=== PATIENT | female | born 1935 | race Caucasian/White ===

== ENCOUNTER 2016-12-06 19:47 | Inpatient (IN) ==
[2016-12-06] MEDS: HYDROmorphone 2 MG/ML SYRINGE IV PRN ×2 (20:25→21:16)
--- NOTE | 2016-12-06 20:35 | Emergency Department Note ---
Lower Extremity Injury HPI - General Chief Complaint: Extremity Injury, Lower Stated Complaint: Left Distal Femur Fracture Time Seen by Provider: 12/06/16 20:15 Source: patient Mode of arrival: ambulatory Limitations: other (gross hearing loss) - History of Present Illness HPI Narrative: 81-year-old female comes in from [place] with a left femur fracture. She was seen several weeks ago for bradycardia was found to have been taking her metoprolol inappropriately- she is at [facility] for that and then was placed in long-term facility in [place], scheduled to go home later this week. However at the nursing facility this morning she was backing up to go to the toilet and her knee buckled causing her to fall. She was taken to [facility] where she was diagnosed with a left femur fracture. Poppy Keyes nurse practitioner on duty there called Dr. Morales who agreed to consult on the patient for surgery tomorrow if hospitalist would admit. So she is brought into the ER for further workup prior to further hospital care and fracture repair - Related Data Home Medications Medication Instructions Recorded Confirmed Bisacodyl [Laxative] 5 mg PO DAILY PRN 12/06/16 12/06/16 Cetirizine [ZyrTEC] 10 mg PO DAILY 12/06/16 12/06/16 Magnesium Hydroxide [Milk of 30 ml PO DAILY PRN 12/06/16 12/06/16 Magnesia] Metoprolol Tartrate [Lopressor] 25 mg PO BID 12/06/16 12/06/16 Omeprazole 20 mg PO DAILY 12/06/16 12/06/16 Oxybutynin Chloride [Ditropan Xl] 5 mg PO DAILY 12/06/16 12/06/16 PARoxetine [Paxil] 20 mg PO DAILY 12/06/16 12/06/16 Phenyleph/Mineral Oil/Petrolat 28 gm RC HS PRN 12/06/16 12/06/16 [Preparation H Ointment] Potassium Chloride [Kdur] 10 meq PO DAILY 12/06/16 12/06/16 Theophylline Anhydrous [Farhat-24] 200 mg PO BID 12/06/16 12/06/16 busPIRone [Buspar] 5 mg PO BID 12/06/16 12/06/16 clonazePAM [Clonazepam] 0.25 mg SL BID 12/06/16 12/06/16 traMADol [Ultram] 50 mg PO TID PRN 12/06/16 12/06/16 Allergies Allergy/AdvReac Type Severity Reaction Status Date / Time Penicillins Allergy Mild ITCHING Verified 12/06/16 19:53 Review of Systems All systems ED: reviewed and negative except as stated. Past Medical History - Past Medical History Attestation: Yes: The following information was validated with the patient. Medical history: Reports: COPD, dementia, hypertension, osteoporosis, other ( nocturnal hypoxia) - Social History smoking status: Never smoker Physical Exam Overweight female in some acute distress secondary to pain. Normocephalic atraumatic. Conjunctiva clear sclerae white and anicteric. No nasal discharge or congestion. Oropharynx is pink and moist. Neck supple without lymphadenopathy or thyromegaly. Heart is regular rate and rhythm no murmurs appreciated. Lungs are clear to auscultation bilaterally without wheezes rales rhonchi or respiratory distress. Abdomen soft nontender nondistended. Left leg is in a brace secondary to fracture- this is very tender. Good pulses at feet posterior tibialis. Trace edema bilaterally. Alert but hearing loss limits interactions. - General Limitations: no limitations Course Vital Signs Temperature 98.6 F 12/06/16 19:47 Pulse Rate 119 H 12/06/16 19:47 Respiratory Rate 20 12/06/16 19:47 Blood Pressure 189/91 12/06/16 19:47 Pulse Oximetry (%) 95 12/06/16 19:47 Temperature 98.6 F 12/06/16 19:47 Pulse Rate 62 12/06/16 21:00 Respiratory Rate 20 12/06/16 21:00 Blood Pressure 183/102 12/06/16 21:00 Pulse Oximetry (%) 95 12/06/16 21:00 Extremity Injury, Lower - Medical Records Medical records reviewed: Yes I reviewed the patient's medical records. From [place] - Lab Data Lab results reviewed: Yes I reviewed the patient's lab results. Result diagrams: 12/06/16 20:05 12/06/16 20:05 Lab Results 12/06/16 12/06/16 12/06/16 Range/Units 20:05 20:05 20:05 WBC 9.2 (4.5-11.0) K/mcL RBC 4.74 (4.00-5.20) M/mcL Hgb 14.4 (12.0-15.0) g/dL Hct 45.9 (36.0-48.0) % MCV 96.9 (80.0-100.0) fL MCH 30.4 (26.0-34.0) pg MCHC 31.4 (31.0-36.0) g/dL RDW 13.3 (11.5-14.5) % Plt Count 288 (140-440) K/mcL MPV 7.9 (7.4-10.4) fL Gran % 83.9 H (38.0-78.0) % Lymph % (Auto) 7.4 L (15.5-49.0) % [place] % (Auto) 7.5 (1.0-9.0) % Eos % (Auto) 1.0 (0.0-7.0) % Baso % (Auto) 0.2 (0.0-2.0) % Gran # 7.7 (1.8-8.0) K/mcL Lymph # 0.7 L (1.5-4.8) K/mcL [place] # 0.7 (0.1-0.9) K/mcL Eos # 0.1 (0.0-0.7) K/mcL Baso # 0 (0.0-0.3) K/mcL PT 12.1 (11.9-14.5) sec INR 0.9 (0.9-1.1) Sodium 138 (133-145) mmol/L Potassium 4.6 (3.3-5.1) mmol/L Chloride 100 (96-108) mmol/L Carbon Dioxide 24 (22-30) mmol/L Anion Gap 14.0 (8-16) BUN 18 (8-23) mg/dl Creatinine 1.0 (0.6-1.1) mg/dl GFR Calculation 52 Glucose 130 H (70-105) mg/dL Calcium 9.4 (8.6-10.4) mg/dl Total Bilirubin 0.3 (0.0-1.0) mg/dL AST 14 (0-37) U/l ALT 8 (0-40) U/l Alkaline Phosphatase 91 (39-117) U/L Total Protein 7.0 (5.9-8.4) gm/dL Albumin 3.9 (3.2-5.2) gm/dL Globulin 3.1 (2.2-3.7) gm/dL Albumin/Globulin Ratio 1.3 (1.0-2.3) Urine Color Urine Appearance Urine pH (5.0-9.0) Ur Specific [place] (1.000-1.035) Urine Protein (NEG) mg/dL Urine Glucose (UA) (NEG) mg/dL Urine Ketones (NEG) mg/dL Urine Occult Blood (<0.03) mg/dL Urine Nitrate (NEG) Urine Bilirubin (NEG) mg/dL Urine Urobilinogen (NEG) mg/dL Ur Leukocyte Esterase (NEG) /uL Urine RBC (0-1) /hpf Urine WBC (0-4) /hpf Ur Squamous Epith Cells (0-4) /hpf Urine Bacteria (0) /hpf Ur Culture Indicated? 12/06/16 Range/Units 20:36 WBC (4.5-11.0) K/mcL RBC (4.00-5.20) M/mcL Hgb (12.0-15.0) g/dL Hct (36.0-48.0) % MCV (80.0-100.0) fL MCH (26.0-34.0) pg MCHC (31.0-36.0) g/dL RDW (11.5-14.5) % Plt Count (140-440) K/mcL MPV (7.4-10.4) fL Gran % (38.0-78.0) % Lymph % (Auto) (15.5-49.0) % [place] % (Auto) (1.0-9.0) % Eos % (Auto) (0.0-7.0) % Baso % (Auto) (0.0-2.0) % Gran # (1.8-8.0) K/mcL Lymph # (1.5-4.8) K/mcL [place] # (0.1-0.9) K/mcL Eos # (0.0-0.7) K/mcL Baso # (0.0-0.3) K/mcL PT (11.9-14.5) sec INR (0.9-1.1) Sodium (133-145) mmol/L Potassium (3.3-5.1) mmol/L Chloride (96-108) mmol/L Carbon Dioxide (22-30) mmol/L Anion Gap (8-16) BUN (8-23) mg/dl Creatinine (0.6-1.1) mg/dl GFR Calculation Glucose (70-105) mg/dL Calcium (8.6-10.4) mg/dl Total Bilirubin (0.0-1.0) mg/dL AST (0-37) U/l ALT (0-40) U/l Alkaline Phosphatase (39-117) U/L Total Protein (5.9-8.4) gm/dL Albumin (3.2-5.2) gm/dL Globulin (2.2-3.7) gm/dL Albumin/Globulin Ratio (1.0-2.3) Urine Color Yellow Urine Appearance Cloudy Urine pH 6.0 (5.0-9.0) Ur Specific [place] 1.015 (1.000-1.035) Urine Protein Neg (NEG) mg/dL Urine Glucose (UA) Negative (NEG) mg/dL Urine Ketones 5/tr A (NEG) mg/dL Urine Occult Blood 0.03 A (<0.03) mg/dL Urine Nitrate Pos A (NEG) Urine Bilirubin Neg (NEG) mg/dL Urine Urobilinogen 2.0 A (NEG) mg/dL Ur Leukocyte Esterase Neg (NEG) /uL Urine RBC 3 H (0-1) /hpf Urine WBC 8 H (0-4) /hpf Ur Squamous Epith Cells 0 (0-4) /hpf Urine Bacteria Few A (0) /hpf Ur Culture Indicated? Yes - Radiology Data Radiology results reviewed: Yes I reviewed the patient's radiology results. CT scan of the knee shows hemarthrosis with a impacted distal medial condyle fracture of the femur Chest x-ray shows scoliosis but no infiltrate. Lung scarring - EKG Data EKG attestation: Yes I reviewed and interpreted this EKG. EKG results narrative: EKG shows normal sinus rhythm without evidence of ischemia rate is 77 Disposition Clinical Impression: Fracture of femur Qualifiers: Encounter type: subsequent encounter Femur location: medial condyle Fracture type: closed Fracture alignment: nondisplaced Laterality: left Fracture healing : with routine healing Qualified Code(s): S72.435D - Nondisplaced fracture of medial condyle of left femur, subsequent encounter for closed fracture with routine healing UTI (urinary tract infection) Qualifiers: Urinary tract infection type: acute cystitis Hematuria presence: with hematuria Qualified Code(s): N30.01 - Acute cystitis with hematuria Summary: Treated pain with Dilaudid however this was causing some respiratory depression so oxygen was added Elevated blood pressure as well likely secondary to pain and missing her home metoprolol tonight- we gave this to her Found to have a UTI in addition to her left medial condyle femur fracture. Start Ancef as it will cover both in preparation for surgery Consult with Dr. gaspar for hospitalist admission- he accepted. Dr. Morales has already been contacted and surgery is planned for tomorrow afternoon Disposition: Xfer As Inpt ([facility] [place]) Condition: Fair Referrals: Poppy Keyes ARNP [Primary Care Provider] - Micah Morales MD [Physician] - Ivett Gaspar MD [Physician] -
[2016-12-06 20:47] LABS: Basophils # (Auto) 0 K/mcL (0.0-0.3); Basophils % (Auto) 0.2 % (0.0-2.0); Eosinophils # (Auto) 0.1 K/mcL (0.0-0.7); Granulocytes % (Auto) 83.9 % (38.0-78.0); Lymphocytes # (Auto) 0.7 K/mcL (1.5-4.8); Lymphocytes % (Auto) 7.4 % (15.5-49.0); Mean Cell Volume 96.9 fL (80.0-100.0); Mean Corpuscular HGB Conc 31.4 g/dL (31.0-36.0); Mean Corpuscular Hemoglobin 30.4 pg (26.0-34.0); Monocytes # (Auto) 0.7 K/mcL (0.1-0.9); Monocytes % (Auto) 7.5 % (1.0-9.0); Platelet Count 288 K/mcL (140-440); RBC 4.74 M/mcL (4.00-5.20); Red Cell Distribution Width 13.3 % (11.5-14.5)
[2016-12-06] MEDS ORDERED: 0.9 % SODIUM CHLORIDE 1,000 ML IV SCH (21:00)
[2016-12-06 21:09] LABS: ALT/SGPT 8 U/l (0-40); Albumin 3.9 gm/dL (3.2-5.2); Albumin/Globulin Ratio 1.3 (1.0-2.3); Alkaline Phosphatase 91 U/L (39-117); Blood Urea Nitrogen 18 mg/dl (8-23)
[2016-12-06 21:24] LABS: Appearance,Urine CLOUDY; Bacteria,Urine FEW /hpf (0); Bilirubin,Urine NEG (NEG); Color,Urine YELLOW; Glucose,Urine (UA) NEGATIVE (NEG); Leukocyte Esterase,Urine NEG /uL (NEG); Nitrate,Urine POS (NEG); Protein,Urine NEG (NEG); Specific Gravity,Urine 1.015 (1.000-1.035); Urine Blood 0.03 mg/dL (<0.03); Urine RBC 3 /hpf (0-1); Urine Squamous Epithelial Cell 0 /hpf (0-4); Urine WBC 8 /hpf (0-4)
[2016-12-06] MEDS ORDERED: METOPROLOL TARTRATE 50 MG TABLET ONE (21:48)
[2016-12-06] MEDS: METOPROLOL TARTRATE 25 MG TABLET PO ONE ×2 (21:59→22:00)
[2016-12-06] MEDS ORDERED: ceFAZolin 1 GM VIAL IV SCH (22:00)
--- NOTE | 2016-12-06 23:08 | Internal Med History&Physical ---
Medical - H&P: [facility] Patient information: Note initiated : 12/06/16 at 11:04 pm Service Date, if different from initiated Date: [] Patient: Meagan Butts 81 y/o F admitted on for Left Distal Femur Fracture. Chief Complaint: [] History of present illness: Ms. Butts is a 81 year old female who was brought in the ER from [facility] for evaluation fo fall and fracture of the left femur condyle. The patient is confused and history was obtained from family at bedside. The patient was a patient of [place] at [facility] where she was for approximately last 2 weeks, she was there to get PT to improve her physical strength. She was recently discharged from [facility] for bradycardia, apparently she was taking her metoprolol and other (theophylline) SR medications either chewing them or blending them. The plan was for her to be d/c this week. Today in the bathroom, on the toilet the patient apparently slipped and fell. Witnessed fall as per son, no loc, no head injury, no bowel bladder incontinence reported. The patient had pain in the left knee and was taken to the ER. Pain was moderate to severe, worse with movement better with rest and pain medications. Acute pain starting after the fall The patient had a X ray which showed condylar fracture. Dr Morales was called who agreed to accept the patient for surgery tomorrow. hospitalist service was asked to admit the patient for medical management. Pt has h/o needing oxygen when she sleeps, when awake her oxygen level is usually normal She denies any h/o CHF (but notes that in the past may have had it), She has HTN , NO h/o CAD, No ND, no DM, no Kidney issues. She has poor functional status, usually ambulates with a walker in the house. Family does not report any endorsement of chest pain or shortness of breath in the last month. ROS unobtainable: due to mental status Review of systems: she did deny chest pain, abdominal pain, shortness of breath. Medical - H&P: PMH Medical history: HTN Dementia Over active bladder Copd needs oxygen at night scoliosis depression/ anxiety GERD Surgical history: evy shoulder joint replacement. [employer] surgeries Family history: reviewed and not pertinent Social history: usually lives with , but presently in [place] for rehab family denies smoking or etoh use. Functional capacity: uses cane/walker Medical - H&P: Meds Home Medications Medication Instructions Recorded Confirmed Type Bisacodyl [Laxative] 5 mg PO DAILY PRN 12/06/16 12/06/16 History Cetirizine [ZyrTEC] 10 mg PO DAILY 12/06/16 12/06/16 History Magnesium Hydroxide [Milk of 30 ml PO DAILY PRN 12/06/16 12/06/16 History Magnesia] Metoprolol Tartrate [Lopressor] 25 mg PO BID 12/06/16 12/06/16 History Omeprazole 20 mg PO DAILY 12/06/16 12/06/16 History Oxybutynin Chloride [Ditropan Xl] 5 mg PO DAILY 12/06/16 12/06/16 History PARoxetine [Paxil] 20 mg PO DAILY 12/06/16 12/06/16 History Phenyleph/Mineral Oil/Petrolat 28 gm RC HS PRN 12/06/16 12/06/16 History [Preparation H Ointment] Potassium Chloride [Kdur] 10 meq PO DAILY 12/06/16 12/06/16 History Theophylline Anhydrous [Farhat-24] 200 mg PO BID 12/06/16 12/06/16 History busPIRone [Buspar] 5 mg PO BID 12/06/16 12/06/16 History clonazePAM [Clonazepam] 0.25 mg SL BID 12/06/16 12/06/16 History traMADol [Ultram] 50 mg PO TID PRN 12/06/16 12/06/16 History Allergies Allergy/AdvReac Type Severity Reaction Status Date / Time Penicillins Allergy Mild ITCHING Verified 12/06/16 19:53 Medical - H&P: Exam - Constitutional Vitals: Temp Pulse Resp BP Pulse Ox 98.6 F 87 20 174/115 94 12/06/16 19:47 12/06/16 22:30 12/06/16 22:30 12/06/16 22:30 12/06/16 22:30 General appearance: cooperative, no acute distress - Head Head exam: Present: atraumatic, normal inspection, normocephalic - Eye Eye exam: Present: PERRL. Absent: periorbital swelling, periorbital tenderness , scleral icterus - ENT ENT exam: Present: mucous membranes dry - Neck Neck exam: Present: normal inspection - Respiratory Respiratory exam: Present: normal respiratory exam. Absent: accessory muscle use, chest wall tenderness, prolonged expiratory phase, rales, respiratory distress, rhonchi, stridor, wheezes - Cardiovascular Cardiovascular exam: Present: normal rate and rhythm, +S1, +S2. Absent: +S3, + S4 - GI/Abdominal GI/Abdominal exam: Present: normal bowel sounds, soft. Absent: rebound, rigid, tenderness - Extremities Exam Additional comments: immobilized left leg edema present in the lower extremities + - Back Exam Back exam: Absent: CVA tenderness (L), CVA tenderness (R) Additional comments: scoliosis noted. - Neurological Exam Additional comments: aoox1, aware of self moves all extremities no focal deficit noted. - Psychiatric Additional comments: confused. mildly agitated. - Skin Skin exam: Absent: rash, urticaria, vesicles, warm Medical - H&P: Reslt - Labs CBC & Chem 7: 12/06/16 20:05 12/06/16 20:05 Labs: Short CBC 12/06/16 Range/Units 20:05 WBC 9.2 (4.5-11.0) K/mcL Hgb 14.4 (12.0-15.0) g/dL Hct 45.9 (36.0-48.0) % Plt Count 288 (140-440) K/mcL BMP 12/06/16 20:05 Sodium 138 Potassium 4.6 Chloride 100 Carbon Dioxide 24 BUN 18 Creatinine 1.0 Glucose 130 H Calcium 9.4 Liver Function 12/06/16 Range/Units 20:05 Total Bilirubin 0.3 (0.0-1.0) mg/dL AST 14 (0-37) U/l ALT 8 (0-40) U/l Alkaline Phosphatase 91 (39-117) U/L Albumin 3.9 (3.2-5.2) gm/dL Urine 12/06/16 Range/Units 20:36 Urine Color Yellow Urine Appearance Cloudy Urine pH 6.0 (5.0-9.0) Ur Specific [place] 1.015 (1.000-1.035) Urine Protein Neg (NEG) mg/dL Urine Glucose (UA) Negative (NEG) mg/dL - EKG Data -: EKG Reviewed by Myself EKG shows normal: sinus rhythm Rate: normal - EKG Data Prior EKG available for review: no When compared to previous EKG: there is no significant change - Imaging and Cardiology Chest x-ray Status: image reviewed by me Additional comments: evy shoulder replacement increased congestion, increased hilar shadow in the irght hilmaria guadalupe seems chr, Medical - H&P: A/P (1) Pre-op evaluation Current visit: Yes Status: Acute (2) Hypertension Current visit: Yes Status: Acute (3) COPD (chronic obstructive pulmonary disease) Current visit: Yes Status: Acute (4) Delirium due to another medical condition Current visit: Yes Status: Acute (5) Fracture of femur Current visit: Yes Status: Acute (6) UTI (urinary tract infection) Current visit: Yes Status: Acute - Narrative A/P Narrative: This is a pleasant 81 yr female, presents after fall Femur fracture- Management as per ortho, plan for Sx tomorrow, NPO tonight, fall precautions. Pre OP eval- resume home medications, try to get BP under control, moderate to high risk given age, poor functional status at baseline, and questionable h/o chf. No active chest pain, no active s3, s4 noted on exam, no crackles on chest exam, possible scarring on cxr vs congestion. COPD- Duonebs q 4 for now, incentive spirometer if able, continue home dose of theophylline. DVT hep one dose today HTN uncontrolled due to pain, get one dose of lasix, resume metoprolol, use IV labetolol prn, good pain control with dialudid. Diet NPO UTI- Treat with Rocephin, await culture, Anceph given in ER for pre op. Delirium- Multifactorial, pain, medications vs UTI. fall precautions for now.
[2016-12-06] MEDS ORDERED: HEPARIN 5,000 UNIT/ML VIAL SQ SCH (23:27)
[2016-12-06] MEDS ORDERED: cefTRIAXone 1 GM in DEXTROSE 5% IN WATER 50 ML IV SCH (23:27)
[2016-12-06] MEDS ORDERED: NALOXONE HCL 0.4 MG/ML VIAL IV PRN (23:27)
[2016-12-06] MEDS ORDERED: ONDANSETRON 4 MG/2 ML VIAL IV PRN (23:27)
[2016-12-06] MEDS ORDERED: LABETALOL HCL 20 MG/4 ML SYRINGE IV PRN (23:27)
[2016-12-06] MEDS ORDERED: HYDROmorphone 2 MG/ML SYRINGE IV PRN (23:27)
[2016-12-06] MEDS ORDERED: FUROSEMIDE 20 MG/2 ML VIAL IV ONE ×2 (23:27→23:48)
[2016-12-06] MEDS ORDERED: ACETAMINOPHEN 325 MG TABLET PO PRN (23:27)
[2016-12-06] MEDS ORDERED: IPRATROPIUM/ALBUTEROL 3 ML AMPUL.NEB NEB ONE (23:47)
[2016-12-06] MEDS ORDERED: cefTRIAXone 1 GM VIAL ONE (23:49)
[2016-12-06] MEDS ORDERED: HEPARIN 5,000 UNIT/ML VIAL ONE (23:49)
[2016-12-06] MEDS: IPRATROPIUM/ALBUTEROL 3 ML AMPUL.NEB NEB SCH (23:51)
[2016-12-07] MEDS ORDERED: IPRATROPIUM/ALBUTEROL 3 ML AMPUL.NEB NEB ONE (03:11)
[2016-12-07] MEDS: IPRATROPIUM/ALBUTEROL 3 ML AMPUL.NEB NEB SCH ×6 (03:28→22:37)
--- NOTE | 2016-12-07 05:54 | XRay Report ---
CLINICAL INFORMATION: Knee injury. Preoperative evaluation. TECHNIQUE: AP portable chest x-ray COMPARISON: Previous abdominal and pelvic CT scan dated 01/29/2016. Previous chest x-rays dated 01/25/2016, 12/31/2013, 12/24/2013. FINDINGS: Large hiatal hernia with a density at the left base. This is larger than on prior studies. No acute or focal pulmonary parenchymal consolidation. Right lung is clear. Left base is suboptimally visualized. No evidence for congestive heart failure. No pulmonary congestion. Previous bilateral shoulder replacement surgery. IMPRESSION: 1. Large hiatal hernia. 2. No acute infiltrate. No evidence for congestive heart failure. Interpreted and Authenticated by: Sergei Reynolds 12/07/16
[2016-12-07] MEDS ORDERED: ceFAZolin 1 GM VIAL ONE (05:56)
--- NOTE | 2016-12-07 06:01 | Cat Scan Report ---
CLINICAL INFORMATION: Knee injury. Poorly defined fracture on plain film examination TECHNIQUE: Thin section axial images through the left knee. Sagittally and coronally reformatted images. Three dimensionally reformatted images. COMPARISON: Plain film examination dated 12/06/2016 FINDINGS: There is osteopenia or osteoporosis. Degenerative joint disease with narrowing of the medial femoral tibial joint space. Fracture of the medial femoral condyle. There is a fracture fragment posteriorly which involves the posterior articular surface. There is a sagittally oriented fracture which also involves the articular surface of the midportion of the medial femoral condyle. No significant displacement. There is a small depressed fracture of the posterior and medial aspects of the medial tibial plateau. This depressed fragment measures approximately 12 mm in mediolateral dimension. Lateral femoral condyle and lateral tibial plateau are negative. Proximal fibula is negative. The talus is negative. There is a large joint effusion with a hematocrit level consistent with hemarthrosis This examination was initially interpreted by [facility]. IMPRESSION: 1. Fractures of the medial femoral condyle and posterior medial aspects of the medial tibial plateau. 2. Large hemarthrosis 3. Osteoporosis 4. Degenerative joint disease Interpreted and Authenticated by: Sergei Reynolds 12/07/16
[2016-12-07] MEDS: ceFAZolin 1 GM VIAL IV SCH ×2 (06:03→14:46)
[2016-12-07] MEDS: 0.9 % SODIUM CHLORIDE 10 ML SYRINGE IV SCH ×3 (06:03→22:26)
[2016-12-07] MEDS: THEOPHYLLINE ANHYDROUS 200 MG PO SCH ×2 (10:12→22:25)
[2016-12-07] MEDS: METOPROLOL TARTRATE 25 MG TABLET PO SCH ×3 (10:12→20:21)
[2016-12-07] MEDS: busPIRone 5 MG TABLET PO SCH ×3 (10:12→20:21)
[2016-12-07] MEDS: PANTOPRAZOLE 40 MG TABLET PO SCH ×2 (10:12→13:20)
[2016-12-07] MEDS: PARoxetine 20 MG TABLET PO SCH ×2 (10:12→13:21)
[2016-12-07] MEDS: POTASSIUM CHLORIDE 10 MEQ TABLET PO SCH ×2 (10:12→13:20)
--- NOTE | 2016-12-07 13:23 | Internal Med Progress Note ---
Medical - PN: Subj Patient information: Note initiated : 12/07/16 at 1:03 pm Service Date, if different from initiated Date: [] Patient: Meagan Butts 81 y/o F admitted on 12/06/16 for Left Distal Femur Fracture. Chief Complaint: [] Interval history: 12/06- patient admitted from [place] s/p fall and condylar fracture of femur, also noted to have UTI. She is supposed to go for surgery by Dr Morales on 12/07 12/07- Pt seen examiend, no acute ovenright events, still needs oxygen, but overall doing better, mental status is clearer today. Family at bedside. Pertinent ROS: Denies headache, dizziness Denies chest pain, palpitations Denies cough or shortness of breath Denies abdominal pain, nausea or vomiting. - Constitutional Vitals: Vital Signs Temp Pulse Resp BP Pulse Ox 98.1 F 70 20 134/81 92 12/07/16 12:00 12/07/16 12:00 12/07/16 12:00 12/07/16 12:00 12/07/16 12:00 Period Temp Pulse Resp BP Sys/Acosta Pulse Ox Last 24 Hr 97.8 F-99.7 F 65-85 12-20 134-191/81-108 92-96 Intake and Output 12/06/16 12/07/16 12/07/16 21:59 05:59 13:59 Intake Total 0 / 300 Output Total 1999 Balance -1999170 Weight 165 lb Intake & Output: Intake & Output 12/06/16 12/07/16 12/07/16 21:59 05:59 13:59 Intake Total 0 / 300 Output Total 1999 Balance -1999170 Weight 165 lb Intake: Oral 0 / 0 Output: Urine Catheter Amount 1999 Exam: Constitutional; Afebrile, cooperative, alert, not in distress. Eyes- No icterus, Pupils equal, reactive, No periorbital swelling Ears- Ext ear normal, hearing hard to conversation. Neck- Midline trachea, supple Respiratory system: Air Entry equal on both sides, No crackles or wheezing, no rhonchi. CVS- Rate rhythm regular, S1,S2 heard, no gallop, no rub. Abdomen- Soft nontender abdomen, no organomegaly, no tenderness, no guarding or rigidity, YOU[employer] SPECIALIST- AOOx2, moving all extremities, no focal deficit noted. 9except the injuired leg Medical - PN: Obj Da - Labs CBC & Chem 7: 12/06/16 20:05 12/06/16 20:05 Meds: Medications Acetaminophen (Tylenol) 650 mg PO Q6HP PRN PRN Reason: PAIN/FEVER > 101 Albuterol/Ipratropium (Duoneb) 3 ml NEB Q4HRT [facility] Last Admin: 12/07/16 11:13 Dose: 3 ml Buspirone HCl (Buspar) 5 mg PO BID [facility] Last Admin: 12/07/16 10:12 Dose: Not Given Cefazolin Sodium (Ancef) 1 gm IV Q8H [facility] Stop: 12/07/16 14:01 Last Admin: 12/07/16 06:03 Dose: Not Given Hydromorphone HCl (Dilaudid) 1 mg IV Q2HP PRN PRN Reason: Pain Ceftriaxone Sodium 1 gm/ (Dextrose) 50 mls @ 100 mls/hr IV DAILY [facility] Metoprolol Tartrate (Lopressor) 25 mg PO BID [facility] Last Admin: 12/07/16 10:12 Dose: Not Given Naloxone HCl (Narcan) 0.1 mg IV Q2MIN PRN PRN Reason: Opiate Reversal Ondansetron HCl (Zofran) 4 mg IV Q6HP PRN PRN Reason: Nausea And Vomiting Pantoprazole Sodium (Protonix) 40 mg PO QAMAC [facility] Last Admin: 12/07/16 10:12 Dose: Not Given Paroxetine HCl (Paxil) 20 mg PO DAILY [facility] Last Admin: 12/07/16 10:12 Dose: Not Given Theophylline Anhydrous [Farhat-24] 200 Mg Capsule 1 dose PO BID [facility] Last Admin: 12/07/16 10:12 Dose: Not Given [facility] ([facility]) [facility] Admin: 12/07/16 10:12 Dose: Not Given Senna (Senokot) 2 tab PO [facility] Sodium Chloride (Saline Flush) 10 ml IV Q8 [facility] Last Admin: 12/07/16 06:03 Dose: Not Given Medical - PN: A/P - Time Spent With Patient Total time spent is greater than 50% in coordination of care (as documented) at patient's floor/unit and/or counseling patient: (1) Hypertension Status: Acute Current Visit: Yes (2) COPD (chronic obstructive pulmonary disease) Status: Acute Current Visit: Yes (3) Delirium due to another medical condition Status: Acute Current Visit: Yes (4) Fracture of femur Status: Acute Current Visit: Yes (5) UTI (urinary tract infection) Status: Acute Current Visit: Yes - Narrative A/P Narrative: HTN - BP much better continue home meds codp - clinically stable, no wheezing noted, UTI on rocephin. await sensitivities femur fracture- Sx hopefully today, pt is NPO. Medical - PN: Qual - Stroke Symptom Onset Unknown: No - VTE Deep Vein Thrombosis/Pulmonary Embolism Present on Admission: No
[2016-12-07] MEDS: cefTRIAXone 1 GM in DEXTROSE 5% IN WATER 50 ML IV SCH (14:46)
[2016-12-07] MEDS: SENNOSIDES 1 TABLET PO SCH (20:21)
[2016-12-08] MEDS ORDERED: traMADol 50 MG TABLET PO ONE (00:10)
[2016-12-08] MEDS: IPRATROPIUM/ALBUTEROL 3 ML AMPUL.NEB NEB SCH ×6 (03:36→23:09)
[2016-12-08] MEDS: 0.9 % SODIUM CHLORIDE 10 ML SYRINGE IV SCH ×3 (05:08→21:21)
[2016-12-08] MEDS: PANTOPRAZOLE 40 MG TABLET PO SCH (07:28)
[2016-12-08] MEDS: busPIRone 5 MG TABLET PO SCH ×2 (08:56→21:16)
[2016-12-08] MEDS: PARoxetine 20 MG TABLET PO SCH (08:57)
[2016-12-08] MEDS: POTASSIUM CHLORIDE 10 MEQ TABLET PO SCH (08:57)
[2016-12-08] MEDS: METOPROLOL TARTRATE 25 MG TABLET PO SCH ×2 (08:57→21:17)
[2016-12-08] MEDS: traMADol 50 MG TABLET PO PRN ×2 (08:58→15:24)
[2016-12-08] MEDS: cefTRIAXone 1 GM in DEXTROSE 5% IN WATER 50 ML IV SCH (08:58)
[2016-12-08] MEDS: THEOPHYLLINE ANHYDROUS 200 MG PO SCH ×2 (08:59→21:21)
--- NOTE | 2016-12-08 10:49 | Consultation ---
DATE OF CONSULTATION: 12/07/2016 DATE OF CONSULTATION: 12/07/2016. REASON FOR CONSULTATION: Left distal femur fracture. REQUESTING PHYSICIAN: Ivett Salinas MD CONSULTING PHYSICIAN: Micah Morales MD CHIEF COMPLAINT: Left knee pain. HISTORY: This is an 81-year-old female who has a history of some dementia. She lives at a jail facility over in [place] and was just about to discharge when yesterday she slipped and fell on the toilet, had pain in the left knee that was severe. She was unable to bear weight. She was taken to the ER in [place] and x-rays taken which showed a medial femoral condyle fracture. She was transferred here for orthopedic care. PAST MEDICAL HISTORY: Positive for hypertension, dementia, COPD, depression, gastroesophageal reflux, and overactive bladder. 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 MEDICATIONS: She takes: Metoprolol. Omeprazole. Paroxetine. Potassium chloride. Buspirone. Clonazepam. Tramadol. Cetirizine. Bisacodyl. Oxybutynin. ALLERGIES: PENICILLIN, WHICH CAUSES ITCHING. FAMILY HISTORY: Noncontributory. SOCIAL HISTORY: She is , normally lives at home but was in care home for rehabilitation. No tobacco or alcohol use. REVIEW OF SYSTEMS: Unable to be obtained at this time due to her sedation and dementia. PHYSICAL EXAMINATION: VITAL SIGNS: When she was admitted was 98.6 temperature, blood pressure 174/115, pulse 87, respirations 20. GENERAL APPEARANCE: At this time, she is somnolent, but arousable to name. NEUROLOGIC: She is oriented to person and otherwise confused. UPPER EXTREMITIES: Bilateral upper extremities show no obvious evidence of trauma, are normal to inspection, range of motion, stability and strength. LOWER EXTREMITIES: Her right lower extremity shows no evidence of trauma, showing normal to range of motion, stability and strength. Her left lower extremity shows obvious swelling at the knee. She has tenderness to palpation medially, limited range of motion. There is no obvious gross instability. Skin is intact. Sensation difficult to assess. Pedal pulses palpable. IMAGING: X-rays reviewed from [place] are difficult to see clearly, but does appear to be a medial femoral condyle fracture. CT scan reviewed by myself shows a minimally displaced posterior medial femoral condyle fracture as well as a small fragment that is displaced and impacted. There is a fair amount of the weightbearing surface of the medial femoral condyle that is uninvolved; however. IMPRESSION: Closed left posterior medial femoral condyle in an 81-year-old female with multiple medical comorbidities and dementia which has a small fragment that is displaced but the majority of the weightbearing surface is intact. PLAN: I did review her case with several of my partners due to the unusual location and nature of the fracture. Due to her age and severe osteoporosis and the location of the fracture fragment, I think it is unlikely that we would be able to get any significant internal fixation. We all feel that a total knee arthroplasty is likely the best treatment; however, not ideal with the fracture currently. Therefore, our recommendation is that she remain nonweightbearing and allow this fracture to heal, which will likely take 8 weeks. At that time if she is not having significant pain, she could not require any surgical intervention; however, if she is having substantial pain with that knee, we could then proceed with a left total knee arthroplasty at that time. In the interim, I would recommend placement in a knee ranger to stabilize the knee. This could be unlocked when she is lying in bed. When they are transferring her, I would lock it between 30 and 45 degrees of flexion. I would recommend physical therapy for bed mobility as possible. We will work on eventual transfer back to a jail facility. She can follow up with me in 1 month to reassess the fracture. I did discuss all this with her son who is present in the room and is agreeable to plan. BJB:mercedez Job ID: [id number] Doc ID: [id number] Micah Morales MD
[2016-12-08] MEDS: SULFAMETHOXAZOLE/TRIMETHOPRIM 1 TABLET PO SCH ×2 (10:54→21:16)
--- NOTE | 2016-12-08 14:09 | Internal Med Progress Note ---
Medical - PN: Subj Patient information: Note initiated : 12/08/16 at 2:07 pm Service Date, if different from initiated Date: [] Patient: Meagan Butts 81 y/o F admitted on 12/06/16 for Left Distal Femur Fracture. Chief Complaint: [] Interval history: 12/06- patient admitted from [place] s/p fall and condylar fracture of femur, also noted to have UTI. She is supposed to go for surgery by Dr Morales on 12/07 12/07- Pt seen examiend, no acute ovenright events, still needs oxygen, but overall doing better, mental status is clearer today. Family at bedside. 12/08, patient seen examined, pt was confused overnight, with derlirum, but was ok this AM, will resume home clonazepam. Likely medical delirum. patients ortho consult reviwed, no plan for surgery, but to place pt in nwb cast. patient will follow up with ortho as outpatient, for possible knee arthroplasty in future if needed. UTI shows ecoli, pt switched to orals. Pertinent ROS: Denies headache, dizziness Denies chest pain, palpitations Denies cough or shortness of breath Denies abdominal pain, nausea or vomiting. - Constitutional Vitals: Vital Signs Temp Pulse Resp BP Pulse Ox 98.3 F 70 12 144/90 95 12/08/16 12:00 12/08/16 11:18 12/08/16 11:18 12/08/16 12:00 12/08/16 12:00 Period Temp Pulse Resp BP Sys/Acosta Pulse Ox Last 24 Hr 97.4 F-99.0 F 60-73 12-20 132-155/82-90 91-95 Intake and Output 12/08/16 12/08/16 12/08/16 05:59 13:59 21:59 Intake Total 400 / 400 960 / 960 Output Total 500 / 500 Balance -100 / -100 960 / 960 Intake & Output: Intake & Output 12/08/16 12/08/16 12/08/16 05:59 13:59 21:59 Intake Total 400 / 400 960 / 960 Output Total 500 / 500 Balance -100 / -100 960 / 960 Intake: Oral 400 / 400 960 / 960 Output: Urine Catheter Amount 500 / 500 Other: Meal Breakfast Percent of Meal Consumed 75% Feeding Ability Assist with Tray Set Up Exam: Constitutional; Afebrile, cooperative, alert, not in distress. Eyes- No icterus, No periorbital swelling Ears- Ext ear normal, hearing hard to conversation. Neck- Midline trachea, supple Respiratory system: Air Entry equal on both sides, No crackles or wheezing, no rhonchi. CVS- Rate rhythm regular, S1,S2 heard, no gallop, no rub. Abdomen- Soft nontender abdomen, no organomegaly, no tenderness, no guarding or rigidity, RADIOLOGY NURSE- AOOx 2, moving all extremities, no focal deficit noted. (except the affected leg) Medical - PN: Obj Da - Labs CBC & Chem 7: 12/06/16 20:05 12/06/16 20:05 Meds: Medications Acetaminophen (Tylenol) 650 mg PO Q6HP PRN PRN Reason: PAIN/FEVER > 101 Albuterol/Ipratropium (Duoneb) 3 ml NEB Q4HRT [facility] Last Admin: 12/08/16 11:17 Dose: 3 ml Buspirone HCl (Buspar) 5 mg PO BID [facility] Last Admin: 12/08/16 08:56 Dose: 5 mg Clonazepam (Klonopin) 0.25 mg PO BID [facility] Hydromorphone HCl (Dilaudid) 1 mg IV Q2HP PRN PRN Reason: Pain Last Admin: 12/07/16 16:07 Dose: 0.5 mg Metoprolol Tartrate (Lopressor) 25 mg PO BID [facility] Last Admin: 12/08/16 08:57 Dose: 25 mg Naloxone HCl (Narcan) 0.1 mg IV Q2MIN PRN PRN Reason: Opiate Reversal Ondansetron HCl (Zofran) 4 mg IV Q6HP PRN PRN Reason: Nausea And Vomiting Pantoprazole Sodium (Protonix) 40 mg PO QAMAC [facility] Last Admin: 12/08/16 07:28 Dose: 40 mg Paroxetine HCl (Paxil) 20 mg PO DAILY [facility] Last Admin: 12/08/16 08:57 Dose: 20 mg Theophylline Anhydrous [Farhat-24] 200 Mg Capsule 1 dose PO BID [facility] Last Admin: 12/08/16 08:59 Dose: Not Given Potassium Chloride (Kdur) 10 meq PO QAMCC [facility] Last Admin: 12/08/16 08:57 Dose: 10 meq Senna (Senokot) 2 tab PO HS AKIL Last Admin: 12/07/16 20:21 Dose: 2 tab Sodium Chloride (Saline Flush) 10 ml IV Q8 [facility] Last Admin: 12/08/16 12:26 Dose: Not Given Tramadol HCl (Ultram) 50 mg PO Q4-6HP PRN PRN Reason: Pain Last Admin: 12/08/16 08:58 Dose: 50 mg Trimethoprim/Sulfamethoxazole (Bactrim Ds) 1 tab PO BID [facility] Last Admin: 12/08/16 10:54 Dose: 1 tab Medical - PN: A/P - Time Spent With Patient Total time spent is greater than 50% in coordination of care (as documented) at patient's floor/unit and/or counseling patient: (1) Hypertension Status: Acute Current Visit: Yes (2) COPD (chronic obstructive pulmonary disease) Status: Acute Current Visit: Yes (3) Delirium due to another medical condition Status: Acute Current Visit: Yes (4) Fracture of femur Status: Acute Current Visit: Yes (5) UTI (urinary tract infection) Status: Acute Current Visit: Yes - Narrative A/P Narrative: Femur fracture- conservative Treatment planned, likely d/c to snf in AM UTI- On bactrim for another 5 days. COPD- Stable on home meds, continue same, no wheezing, follow up with pcp. Delirum- medical delirum, resume home dose of clonazepam which may be contributing to same. DVT hep sq Diet resumed. Medical - PN: Qual - Stroke Symptom Onset Unknown: No - VTE Deep Vein Thrombosis/Pulmonary Embolism Present on Admission: No
[2016-12-08] MEDS: HEPARIN 5,000 UNIT/ML VIAL SQ SCH ×2 (15:24→23:19)
[2016-12-08] MEDS ORDERED: TMP DS PO SCH (21:00)
[2016-12-08] MEDS ORDERED: SULFAMETHOXAZOLE PO SCH (21:00)
[2016-12-08] MEDS: SENNOSIDES 1 TABLET PO SCH (21:17)
[2016-12-08] MEDS: clonazePAM 0.5 MG TABLET PO SCH (21:18)
[2016-12-09] MEDS: IPRATROPIUM/ALBUTEROL 3 ML AMPUL.NEB NEB SCH ×2 (02:51→07:14)
[2016-12-09] MEDS: 0.9 % SODIUM CHLORIDE 10 ML SYRINGE IV SCH (05:08)
[2016-12-09] MEDS: traMADol 50 MG TABLET PO PRN (07:07)
[2016-12-09] MEDS: PANTOPRAZOLE 40 MG TABLET PO SCH (07:07)
[2016-12-09] MEDS: clonazePAM 0.5 MG TABLET PO SCH (08:16)
[2016-12-09] MEDS: SULFAMETHOXAZOLE/TRIMETHOPRIM 1 TABLET PO SCH (08:16)
[2016-12-09] MEDS: POTASSIUM CHLORIDE 10 MEQ TABLET PO SCH (08:16)
[2016-12-09] MEDS: PARoxetine 20 MG TABLET PO SCH (08:16)
[2016-12-09] MEDS: METOPROLOL TARTRATE 25 MG TABLET PO SCH (08:16)
[2016-12-09] MEDS: HEPARIN 5,000 UNIT/ML VIAL SQ SCH (08:16)
[2016-12-09] MEDS: busPIRone 5 MG TABLET PO SCH (08:17)
[2016-12-09] MEDS: THEOPHYLLINE ANHYDROUS 200 MG PO SCH (08:17)
[2016-12-09] MEDS ORDERED: oxyCODONE HCL 5 MG TABLET PO PRN (08:51)
--- NOTE | 2016-12-09 09:09 | Discharge Summary ---
Medical - DS: Prov Patient information: Note initiated : 12/09/16 at 9:06 am Service Date, if different from initiated Date: [] Patient: Meagan Butts 81 y/o F admitted on 12/06/16 for Left Distal Femur Fracture. Chief Complaint: [] Date of admission: 12/06/16 23:16 Discharge date: 12/09/16 Primary care physician: [f_Reg Prim Care Provider] Admitting clinician: Ivett Salinas Discharging clinician: Ivett Salinas Medical - DS: Meds - Discharge Medications Prescriptions: Ipratropium/Albuterol [Duoneb] 3 ml NEB Q4HRT PRN #120 ampul.neb PRN Reason: Shortness Of Breath Or Wheezing Sulfamethoxazole/Trimethoprim [Bactrim Ds] 1 tab PO BID #10 tablet oxyCODONE HCL [Roxicodone] 5 mg PO Q4-6HP PRN #60 tablet PRN Reason: Pain Active and Home Medications: Home Medications Bisacodyl [Laxative] 5 mg PO DAILY PRN 12/06/16 [History Confirmed 12/06/16 Last Taken Unknown] Cetirizine [ZyrTEC] 10 mg PO DAILY 12/06/16 [History Confirmed 12/06/16 Last Taken Unknown] Magnesium Hydroxide [Milk of Magnesia] 30 ml PO DAILY PRN 12/06/16 [History Confirmed 12/06/16 Last Taken Unknown] Metoprolol Tartrate [Lopressor] 25 mg PO BID 12/06/16 [History Confirmed Last Taken Unknown] Omeprazole 20 mg PO DAILY 12/06/16 [History Confirmed 12/06/16 Last Taken Unknown] Oxybutynin Chloride [Ditropan Xl] 5 mg PO DAILY 12/06/16 [History Confirmed Last Taken Unknown] PARoxetine [Paxil] 20 mg PO DAILY 12/06/16 [History Confirmed 12/06/16 Last Taken Unknown] Phenyleph/Mineral Oil/Petrolat [Preparation H Ointment] 28 gm RC HS PRN [History Confirmed 12/06/16 Last Taken Unknown] Potassium Chloride [Kdur] 10 meq PO DAILY 12/06/16 [History Confirmed 12/06/16 Last Taken Unknown] Theophylline Anhydrous [Farhat-24] 200 mg PO BID 12/06/16 [History Confirmed 12/06 Last Taken Unknown] busPIRone [Buspar] 5 mg PO BID 12/06/16 [History Confirmed 12/06/16 Last Taken Unknown] clonazePAM [Clonazepam] 0.25 mg SL BID 12/06/16 [History Confirmed 12/06/16 Last Taken Unknown] traMADol [Ultram] 50 mg PO TID PRN 12/06/16 [History Confirmed 12/06/16 Last Taken Unknown] Medical - DS: Hosp Hospital course: Mr. Butts is a 81 year old female who was a resident at [facility], who presented to the ER after a fall in the [facility] bathroom and left femoral condylar fracture. The patient was a patient of [facility] at [place] where she was for approximately last 2 weeks, she was there to get PT to improve her physical strength. She was recently discharged from [facility] for bradycardia, apparently she was taking her metoprolol and other (theophylline) SR medications either chewing them or blending them. The patient was admitted for management of fracture, initially the plan was to do surgery. Dr Gallegos was consulted for further management. Dr gallegos initially planned to do surgery however on further review, he felt it best that the fracture be treated conservatively. He placed a knee immobilizer on the patients left knee and advised patient to be non weight bearing for 8 weeks for fracture to heal, should the patient have any further complications or pain which prevents her functionality then he would consider a TKA. The patients ua also suggested UTI, noted to have Ecoli on culture, initially treated with rocephin, switched to bactrim on discharge for 5 days based on sensitivities. The patient has h/o COPD and uses 2L oxygen at night, she is also on theophylline by her PCP which was continued here. I have added duonebs prn for the patient. Pain management/ she is on tramadol at home, given its possible interactions with ssri I have switched her to oxycodone for pain management during her acute phase, her pcp can switch her back to tramadolol when he deems appropriate. Delirum- During the hospital stay the patient has become delirous every night, with at times wanting to crawl out of bed, denying that there is a fracture. However during morning rounds she seems to be back to her baseline. This is medical derlirum and needs to be managed conservatively. I anticipate her to improve once her UTI resolves and has better pain control. Discharge diagnosis: UTI, Left femur fracture. - Time Spent with Patient Total time spent providing and/or coordinating discharge services: Greater than 30 minutes Medical - DS: Exam - Constitutional Vitals: Vital Signs Temp Pulse Pulse Resp BP BP Pulse Ox 12/09/16 07:40 91 H 12 12/09/16 07:28 98.4 F 84 18 142/77 93 12/09/16 07:16 88 10 L 12/09/16 07:14 91 12/09/16 03:08 97.5 F L 72 18 137/80 91 12/08/16 23:35 98.2 F 64 18 141/78 91 12/08/16 23:09 88 18 12/08/16 20:00 98.4 F 89 20 137/84 93 12/08/16 19:05 91 12/08/16 19:03 90 21 12/08/16 16:07 93 12/08/16 16:06 93 12/08/16 16:04 66 21 12/08/16 15:07 96.7 F L 24 148/80 90 12/08/16 12:00 98.3 F 144/90 95 12/08/16 11:18 70 12 Intake and Output 12/08/16 12/09/16 12/09/16 21:59 05:59 13:59 Intake Total 400 / 400 150 / 150 240 / 240 Output Total 300 / 300 275 / 275 200 / 200 Balance 100 / 100 -125 / -125 40 / 40 Intake: Oral 400 / 400 150 / 150 240 / 240 Output: Urine Catheter Amount 300 / 300 275 / 275 200 / 200 Other: Meal Dinner Breakfast Percent of Meal Consumed 25% 75% Feeding Ability Assist with Tray Set Up Assist with Tray Set Up Weight 162 lb 8 oz Additional comments: Constitutional; Afebrile, cooperative, alert, not in distress. Eyes- No icterus, Pupils equal, reactive, No periorbital swelling Ears- Ext ear normal, hearing normal to conversation. Neck- Midline trachea, supple Respiratory system: Air Entry equal on both sides, basilar inspiratory crackels , no wheezing or rhonchi. CVS- Rate rhythm regular, S1,S2 heard, no gallop, no rub. Abdomen- Soft nontender abdomen, no organomegaly, no tenderness, no guarding or rigidity, PROFESSOR OF COMMUNICATION ARTS- AOOx3 this morning, able to tell me where she was ,her name, month and the year, moving all extremities, no focal deficit noted. (except the left leg in cast ) Medical - DS: A/P - Patient/Caregiver Discharge Instructions Activity: increase activity as tolerated (non weight bearing on left leg. PT for therapy in bed. ) Diet: Regular Diet Additional Instructions: Non weight bearing on the left leg Knee immobilizer and ranger to be used all times during the day Ok to remove it during sleep Lock to 30-45deg during transportation. Physicial therapy/ OT/ ST at rehab facility. Follow up with Dr Gallegos in 4 weeks. Continue Bactrim for UTI for 5 days. Prescriptions: Ipratropium/Albuterol [Duoneb] 3 ml NEB Q4HRT PRN #120 ampul.neb PRN Reason: Shortness Of Breath Or Wheezing Sulfamethoxazole/Trimethoprim [Bactrim Ds] 1 tab PO BID #10 tablet oxyCODONE HCL [Roxicodone] 5 mg PO Q4-6HP PRN #60 tablet PRN Reason: Pain Other Amb Orders: OT Discharge Order Location: Determined By Patient Physical Therapy at Discharge - General Location: Determined By Patient ST Discharge Order Location: Determined By Patient - Problem Maintenance (1) Hypertension Status: Acute (2) COPD (chronic obstructive pulmonary disease) Status: Acute (3) Delirium due to another medical condition Status: Acute (4) Fracture of femur Status: Acute Qualifiers: Encounter type: subsequent encounter Femur location: medial condyle Fracture type: closed Fracture alignment: nondisplaced Laterality: left Fracture healing: with routine healing Qualified Code(s): S72.435D - Nondisplaced fracture of medial condyle of left femur, subsequent encounter for closed fracture with routine healing (5) UTI (urinary tract infection) Status: Acute Qualifiers: Urinary tract infection type: acute cystitis Hematuria presence: with hematuria Qualified Code(s): N30.01 - Acute cystitis with hematuria - Follow up Plan Follow up with: Poppy Keyes ARNP [Primary Care Provider] - Micah Gallegos MD [Physician] - 01/10/17 10:10 am (Please check in at 9:50 am for your 10:10 appointment. Please bring in photo ID and insurance cards.) Jarret Newsome PA-C [Family Provider] - Disposition: Xfer SNF Prognosis: Fair Rehab Potential: Fair I certify that the patient requires SNF services: Yes Overall status at discharge: patient is progressing back to baseline Medical - DS: Qual - VTE Deep Vein Thrombosis/Pulmonary Embolism Present on Admission: No
== END 2016-12-09 11:05 | DRG 534 ==
LOC: ED 19:47 → MEDSUR 23:15
PROVIDERS: ADMIT Internal Medicine; ATTEND Internal Medicine

== ENCOUNTER 2017-02-09 08:33 | Inpatient (IN) ==
[~2017-02-09 08:33] MED LIST: CELECOXIB 200 MG CAPSULE PO SCH; KETOROLAC 30 MG, ROPIVACAINE HCL/PF 49.5 ML, EPINEPHrine 0.5 MG, 0.9 % SODIUM CHLORIDE ... IJ SCH; PREGABALIN 75 MG CAPSULE PO SCH; ceFAZolin 1 GM VIAL IV SCH; oxyCODONE 10 MG TAB.ER.12H PO SCH
[2017-02-09] MEDS ORDERED: TRANEXAMIC ACID 1,000 MG/10 ML VIAL IV ONE ×2 (12:35→14:18)
[2017-02-09] MEDS ORDERED: DEXAMETHASONE 10 MG/ML VIAL IV ONE (12:35)
[2017-02-09] MEDS ORDERED: fentaNYL 250 MCG/5 ML VIAL IV ONE (12:35)
[2017-02-09] MEDS ORDERED: PROPOFOL 200 MG/20 ML VIAL IV ONE (12:35)
[2017-02-09] MEDS ORDERED: ROPIVACAINE HCL/PF 30 ML VIAL IJ ONE (12:35)
[2017-02-09] MEDS ORDERED: LIDOCAINE HCL/PF 100 MG/5 ML SYRINGE IV ONE (12:35)
[2017-02-09] MEDS ORDERED: ePHEDrine 50 MG/ML AMPUL IV PRN (13:50)
[2017-02-09] MEDS ORDERED: METOPROLOL TARTRATE 5 MG/5 ML VIAL IV PRN (13:50)
[2017-02-09] MEDS ORDERED: ONDANSETRON 4 MG/2 ML VIAL IV PRN ×2 (13:50→14:18)
[2017-02-09] MEDS ORDERED: fentaNYL 100 MCG/2 ML VIAL IV PRN (13:50)
[2017-02-09] MEDS ORDERED: NALOXONE HCL 0.4 MG/ML VIAL IV PRN (13:50)
[2017-02-09] MEDS ORDERED: ATROPINE SULFATE 0.4 MG/ML VIAL IV PRN (13:50)
[2017-02-09] MEDS ORDERED: IPRATROPIUM/ALBUTEROL 3 ML AMPUL.NEB NEB PRN ×2 (13:50→14:22)
[2017-02-09] MEDS ORDERED: METHOCARBAMOL 1,000 MG/10 ML VIAL IV PRN (13:50)
[2017-02-09] MEDS ORDERED: HYDROmorphone 2 MG/ML SYRINGE IV PRN (13:50)
[2017-02-09] MEDS ORDERED: BENZOCAINE/MENTHOL 1 LOZENGE PO PRN ×2 (13:50→14:18)
--- NOTE | 2017-02-09 14:17 | Brief Operative Note ---
Date of procedure: 02/09/17 Pre-op diagnosis: Left knee malunion Post-op diagnosis: same Procedure: Left Total Knee Arthroplasty Grafts/Implants: Yes ([place] Triathlon 2 PS femur, 3 tibia, 9mm TS X3 insert, 33 patella,) Anesthesia: spinal, GLMA Findings: malunion of femur and tibia, severe osteoporosis Complications: none Surgeon: Micah Morales Safe And Vault Mechanic: Uriel Green Estimated blood loss (cc): 30 Specimens Removed/Pathology: none sent Condition: stable Disposition: PACU
[2017-02-09] MEDS ORDERED: FLEETS ADULT ENEMA PR PRN (14:18)
[2017-02-09] MEDS ORDERED: POLYETHYLENE GLYCOL 3350 17 GM PACKET PO PRN (14:18)
[2017-02-09] MEDS ORDERED: MAGNESIUM HYDROXIDE 30 ML ORAL.SUSP PO PRN ×2 (14:18→14:22)
[2017-02-09] MEDS ORDERED: BISACODYL 10 MG SUPP.RECT PR PRN (14:18)
[2017-02-09] MEDS ORDERED: PHENYLEPH PR PRN (14:22)
[2017-02-09] MEDS ORDERED: MINERAL OIL PR PRN (14:22)
[2017-02-09] MEDS ORDERED: oxyCODONE HCL 5 MG TABLET PO PRN (14:22)
[2017-02-09] MEDS ORDERED: PETROLAT PR PRN (14:22)
[2017-02-09] MEDS: LACTATED RINGERS 1,000 ML IV SCH ×2 (14:40→16:18)
[2017-02-09] MEDS ORDERED: BISACODYL 5 MG TABLET PO PRN (14:45)
[2017-02-09 14:47] LABS: Appearance,Urine CLOUDY; Bacteria,Urine 0 /hpf (0); Bilirubin,Urine NEG (NEG); Color,Urine YELLOW; Glucose,Urine (UA) NEGATIVE (NEG); Leukocyte Esterase,Urine NEG /uL (NEG); Nitrate,Urine NEG (NEG); Protein,Urine NEG (NEG); Specific Gravity,Urine 1.015 (1.000-1.035); Urine Amorphous Crystals MANY /hpf (0); Urine Blood 0.03 mg/dL (<0.03); Urine RBC 1 /hpf (0-1); Urine Squamous Epithelial Cell 3 /hpf (0-4); Urine WBC 11 /hpf (0-4); Urobilinogen,Urine NEG (NEG)
--- NOTE | 2017-02-09 15:24 | Operative Note ---
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 PROCEDURE PERFORMED: Left total knee arthroplasty using a Pedro Triathlon size 2 posterior stabilized femoral component, size 3 tibial baseplate. These were with short cemented stems. A 9 mm total stabilized X3 tibial insert with a 31 mm patellar button. SURGEON: Micah Morales MD. SAND SCREENER: Yon Green PA-C. ANESTHESIA: Spinal plus general. DRAINS: None. SPECIMENS: Bone cuts, which were discarded. BLOOD LOSS: Less than 30 mL. POSTOPERATIVE CONDITION: Stable. INDICATIONS FOR SURGERY: This is an 81-year-old female who nearly two months ago sustained a fall injuring her left knee. She had at the time a nondisplaced posterior femoral condyle fracture. We tried to manage this nonoperatively due to her age, comorbidities and dementia. However, she was unable to maintain precautions on it, and the fracture displaced resulting in significant joint step-off with malunion. FINDINGS AT SURGERY: She did have a markedly displaced posterior femoral condyle malunion and a small tibial plateau malunion. There was severe osteoporosis. Post implantation showed good overall limb alignment, patellar tracking, and joint stability. PROCEDURE IN DETAIL: The patient's son and her had been seen preoperatively, and informed consent had been obtained from her son who has Power of Marine Drafter, about risks of surgery which include, but are not limited to, bleeding, possibly requiring transfusion; infection, possibly requiring implant removal and prolonged IV antibiotics; injury to nerves, blood vessels, and other surrounding structures; anesthetic risks; incomplete or no resolution of symptoms; DVT and pulmonary embolus risks; and the possibility of needing further surgery; possible heart attack, stroke or intraoperatively. He understood these risks and wished to proceed. Correct operative site was marked and the patient received spinal anesthesia. She was then taken to the operating room and LMA general given. The left lower extremity was then carefully prepped and draped in normal sterile fashion, and a time-out was performed verifying patient name, operative site, and plan. Esmarch was used to exsanguinate the extremity and tourniquet was inflated. Midline incision was made with a scalpel through skin and subcutaneous tissue. Irrisept was irrigated and then a medial parapatellar arthrotomy made. Subperiosteal exposure was done of the anterior medial tibia, and then the retropatellar fat pad was excised, and the distal anterior cortex of the femur was exposed. A drill hole was made in the femoral canal and immediately we noted the severe osteoporosis. We went ahead and pinned a 5 degree valgus cut block with an [address]. We made our distal femur cut and then our [place]'s line and epicondylar axis were marked. A sizer block was pinned into place. Due of the lack of the posterior medial femoral condyle, we just aligned this with the Rosalino's line predominantly. We then sized this to a size 2. We placed the size two 4-in-[address] Hiram wing was checked to verify a good anterior cut, so we went ahead and made our anterior cut which was flush, so we went ahead and made our posterior and chamfer cuts. Medially, there was no bone to chamfer. We then subluxed the tibia forward. Again, retractors wanted to push through the bone. We went ahead and made a drill hole in the tibia and then an IM adam passed. We stylused two off the medial side and then pinned a zero degree tibial cut block in place. We went ahead and made our tibial cut. This sized out to a size 3, which we externally rotated maximally as bone coverage would allow. This was pinned into place, and a Boss reamer and keel punch used to prepare. We then placed a keeled tibial trial. We then went to try and prepare the box which we did with a standard posterior stabilized block, and then we ended up just free-handing the large reamer to make space for the connector given her severe osteoporosis. We then assembled a short-stemmed femoral trial and impacted this. A 9 total stabilizer insert was trialed, and the knee just went into full extension, had satisfactory deep flexion. We went ahead and prepared our patella. Freehand technique was used and we medialized maximally and drilled a hole for a 31. A 31 was placed and a lateral facetectomy performed. We then took our knee through range of motion. Patella tracked acceptably. We went ahead and opened the definitive implants while trial implants were removed. We filled the joint with Irrisept. After waiting a minute, we copiously pulse lavaged with saline. Antibiotic cement was mixed. We cemented the tibia and stem along with the femoral implant and stem. A 9 insert trial was placed, and the knee was taken into extension and the patellar button cemented. While cement was hardening, we filled the joint Irrisept. After waiting a minute, we then injected pain cocktail into the pericapsular and subcutaneous tissues and then pulse lavaged copiously with saline until cement had fully hardened. We flexed the knee up and did check for any residual cement that was removed. We removed the trial insert and injected the remainder of the pain cocktail in the posterior capsule, and then we opened a definitive tibial insert. Final Irrisept irrigation done and then the 9 mm total stabilizer insert was impacted. The pin was impacted through the top of the post and then the knee was placed in about 45 degrees of flexion. A #2 FiberWire interrupted [id number] were used around the superior quadrant of the patella. A #1 Vicryl interrupted [id number] around the inferior quadrant of the patella. Running #1 Vicryl was used for patellar tendon and quad tendon. Final Irrisept irrigation done and then after a minute pulse lavaged, and then 2-0 Monocryl for subcutaneous and eagle for skin. Xeroform and sterile dressing were applied. Tourniquet was released. The patient was awakened, extubated, and transferred to recovery in stable condition. CINTHYA:alysha Job ID: [id number] Doc ID: [id number] Micah Morales MD
--- NOTE | 2017-02-09 15:25 | XRay Report ---
CLINICAL INFORMATION: Postsurgical follow-up TECHNIQUE: AP, lateral, sunrise views of the left knee COMPARISON: Previous CT scan dated 12/06/2016 FINDINGS: Status post left total knee arthroplasty. Postsurgical soft tissue and intra-articular gas. Patella is mildly medially subluxed. IMPRESSION: Status post left total knee arthroplasty Interpreted and Authenticated by: Sergei Reynolds 02/09/17
[2017-02-09] MEDS: 0.9 % SODIUM CHLORIDE 1,000 ML IV SCH (16:20)
[2017-02-09] MEDS: KETOROLAC 15 MG/ML VIAL IV SCH ×2 (17:00→23:28)
[2017-02-09] MEDS: ceFAZolin 1 GM VIAL IV SCH (20:30)
[2017-02-09] MEDS: SENNOSIDES 1 TABLET PO SCH (20:53)
[2017-02-09] MEDS: METOPROLOL TARTRATE 25 MG TABLET PO SCH (20:53)
[2017-02-09] MEDS: clonazePAM 0.5 MG TABLET PO SCH (20:53)
[2017-02-09] MEDS: busPIRone 5 MG TABLET PO SCH (20:54)
[2017-02-09] MEDS: ASPIRIN 325 MG ENTERIC COATED TABLET PO SCH (20:54)
[2017-02-09] MEDS: DOCUSATE SODIUM 100 MG CAPSULE PO SCH (20:54)
[2017-02-09] MEDS: 0.9 % SODIUM CHLORIDE 10 ML SYRINGE IV SCH (20:57)
[2017-02-09] MEDS ORDERED: NON FORMULARY MEDICATION 1 DOSE MISCELL (Docusate Sodium 100 MG) PO SCH (21:00)
[2017-02-09] MEDS: oxyCODONE/APAP 5/325MG TABLET PO PRN (22:43)
[2017-02-10] MEDS: oxyCODONE/APAP 5/325MG TABLET PO PRN (00:27)
[2017-02-10] MEDS: 0.9 % SODIUM CHLORIDE 1,000 ML IV SCH ×3 (02:14→14:14)
[2017-02-10] MEDS: ceFAZolin 1 GM VIAL IV SCH (05:02)
[2017-02-10] MEDS: 0.9 % SODIUM CHLORIDE 10 ML SYRINGE IV SCH ×3 (05:05→22:17)
[2017-02-10] MEDS: KETOROLAC 15 MG/ML VIAL IV SCH ×3 (05:23→17:34)
[2017-02-10] MEDS: PANTOPRAZOLE 40 MG TABLET PO SCH (07:14)
--- NOTE | 2017-02-10 07:45 | Orthopedic Progress Note ---
Orthopedics - Auxillary Note - Subjective Patient Information: Note initiated : 02/10/17 at 7:44 am Service Date, if different from initiated Date: [] Patient: Meagan Butts 81 y/o F admitted on 02/09/17 for Lt Total Knee Arthroplasty. Chief Complaint: no c/o. bandages c/d/i nvi-distal Vital Signs Temp Pulse Pulse Pulse Resp BP BP 02/10/17 07:39 67 20 02/10/17 07:15 97.5 F L 66 14 123/83 02/10/17 07:07 02/10/17 03:20 98.4 F 57 L 20 124/85 02/09/17 23:38 97.9 F 72 20 120/75 02/09/17 18:40 97.4 F L 89 20 139/86 02/09/17 17:40 18 140/85 02/09/17 17:10 14 152/93 02/09/17 16:50 02/09/17 16:40 14 147/90 02/09/17 16:25 14 151/88 02/09/17 16:10 14 171/83 02/09/17 15:55 99.6 F 14 154/85 02/09/17 15:53 65 16 02/09/17 15:00 98.3 F 78 17 178/96 02/09/17 14:45 76 18 175/67 02/09/17 14:34 97.2 F L 14 161/91 02/09/17 09:07 97.9 F 44 L 16 130/64 Pulse Ox 02/10/17 07:39 93 02/10/17 07:15 96 02/10/17 07:07 93 02/10/17 03:20 95 02/09/17 23:38 90 02/09/17 18:40 90 02/09/17 17:40 90 02/09/17 17:10 94 02/09/17 16:50 91 02/09/17 16:40 92 02/09/17 16:25 90 02/09/17 16:10 95 02/09/17 15:55 90 02/09/17 15:53 92 02/09/17 15:00 98 02/09/17 14:45 96 02/09/17 14:34 93 02/09/17 09:07 89 L Intake and Output 02/09/17 02/10/17 02/10/17 21:59 05:59 13:59 Intake Total 1939 / 1939 1390 / 1390 Output Total 600 / 600 Balance 1939 790 / 790 Intake: IV 1700 / 1700 990 / 990 Sodium Chloride 0.9% 1, 990 / 990 000 ml @ 100 mls/hr IV . Q10H [facility] Rx#:[id number] Lactated Ringers 1,000 ml 1700 / 1700 @ 20 mls/hr IV .Q24H [facility] Rx#:[id number] Oral 240 / 240 400 / 400 Output: Urine Catheter Amount 600 / 600 Other: Meal Nourishment/Supplement Percent of Meal Consumed 100% Feeding Ability Independent Weight 166 lb 8 oz Laboratory Results - last 24 hr 02/09/17 02/10/17 14:02 04:56 Hgb 12.5 Hct 37.6 Urine Color Yellow Urine Appearance Cloudy Urine pH 6.0 Ur Specific [place] 1.015 Urine Protein Neg Urine Glucose (UA) Negative Urine Ketones Neg Urine Occult Blood 0.03 A Urine Nitrate Neg Urine Bilirubin Neg Urine Urobilinogen Neg Ur Leukocyte Esterase Neg Urine RBC 1 Urine WBC 11 H Ur Squamous Epith Cells 3 Amorphous Crystals Many A Urine Bacteria 0 Ur Culture Indicated? Yes s/p L total knee arthroplasty-stable mobilize with PT
[2017-02-10] MEDS: ASPIRIN 325 MG ENTERIC COATED TABLET PO SCH ×2 (08:28→20:34)
[2017-02-10] MEDS: busPIRone 5 MG TABLET PO SCH ×2 (08:28→20:34)
[2017-02-10] MEDS: POTASSIUM CHLORIDE 10 MEQ TABLET PO SCH (08:28)
[2017-02-10] MEDS: PARoxetine 20 MG TABLET PO SCH (08:28)
[2017-02-10] MEDS: CETIRIZINE 10 MG TABLET PO SCH (08:29)
[2017-02-10] MEDS: OXYBUTYNIN CHLORIDE 5 MG TAB.XL.24H PO SCH (08:29)
[2017-02-10] MEDS: METOPROLOL TARTRATE 25 MG TABLET PO SCH ×2 (08:29→20:34)
[2017-02-10] MEDS: clonazePAM 0.5 MG TABLET PO SCH ×2 (08:29→20:34)
[2017-02-10] MEDS: DOCUSATE SODIUM 100 MG CAPSULE PO SCH ×2 (08:29→20:34)
[2017-02-10] MEDS ORDERED: FUROSEMIDE 20 MG/2 ML VIAL IV ONE (16:29)
[2017-02-10] MEDS: traMADol 50 MG TABLET PO PRN ×2 (17:29→23:13)
[2017-02-10] MEDS: SENNOSIDES 1 TABLET PO SCH (20:34)
[2017-02-11] MEDS: 0.9 % SODIUM CHLORIDE 1,000 ML IV SCH ×5 (00:40→17:40)
[2017-02-11] MEDS: KETOROLAC 15 MG/ML VIAL IV SCH ×3 (00:44→12:00)
[2017-02-11] MEDS: traMADol 50 MG TABLET PO PRN ×2 (05:11→19:57)
[2017-02-11] MEDS: 0.9 % SODIUM CHLORIDE 10 ML SYRINGE IV SCH ×3 (06:14→21:51)
[2017-02-11] MEDS: PANTOPRAZOLE 40 MG TABLET PO SCH (07:11)
[2017-02-11] MEDS: POTASSIUM CHLORIDE 10 MEQ TABLET PO SCH (07:11)
--- NOTE | 2017-02-11 07:40 | Orthopedic Progress Note ---
Orthopedics - Auxillary Note - Subjective Patient Information: Note initiated : 02/11/17 at 7:37 am Service Date, if different from initiated Date: [] Patient: Meagan Butts 81 y/o F admitted on 02/09/17 for Lt Total Knee Arthroplasty. Chief Complaint: no c/o. Pt seems more confused today than yesterday. Bandages c/d/i nvi-distal Vital Signs Temp Pulse Pulse Resp BP BP Pulse Ox 02/11/17 07:17 16 02/11/17 06:33 97.8 F 20 111/68 92 02/11/17 04:00 97.9 F 60 22 101/61 02/10/17 23:20 98.0 F 65 18 116/73 92 02/10/17 20:21 93 02/10/17 20:20 62 21 93 02/10/17 20:00 98.1 F 57 L 20 107/72 93 02/10/17 16:03 95 02/10/17 15:51 98.4 F 60 20 99/60 85 L 02/10/17 14:16 92 02/10/17 12:33 97.6 F 58 L 20 102/65 94 Intake and Output 02/10/17 02/11/17 02/11/17 21:59 05:59 13:59 Intake Total 863 / 863 1250 / 1250 240 / 240 Output Total 477 / 477 125 / 125 100 / 100 Balance 386 / 386 1125 / 1125 140 / 140 Intake: IV 393 / 393 1000 / 1000 Sodium Chloride 0.9% 1, 393 / 393 1000 / 1000 000 ml @ 100 mls/hr IV . Q10H [facility] Rx#:[id number] Oral 470 / 470 250 / 250 240 / 240 Output: Urine Catheter Amount 200 / 200 Void Amount 275 / 275 125 / 125 100 / 100 # of times incontinent of 2 / 2 urine Other: Meal Dinner Percent of Meal Consumed 75% # Bowel Movements 1 Weight 168 lb 168 lb Patient Weight 02/12/17 05:59 Weight 168 lb Laboratory Results - last 24 hr 02/11/17 04:45 Hgb 11.2 L Hct 33.8 L s/p L total knee arthroplasty-stable mobilize with PT tentative discharge to SNF tomorrow
[2017-02-11] MEDS: clonazePAM 0.5 MG TABLET PO SCH ×2 (08:39→19:57)
[2017-02-11] MEDS: DOCUSATE SODIUM 100 MG CAPSULE PO SCH ×2 (08:39→19:56)
[2017-02-11] MEDS: METOPROLOL TARTRATE 25 MG TABLET PO SCH ×2 (08:40→19:58)
[2017-02-11] MEDS: ASPIRIN 325 MG ENTERIC COATED TABLET PO SCH ×2 (08:40→19:56)
[2017-02-11] MEDS: PARoxetine 20 MG TABLET PO SCH (08:40)
[2017-02-11] MEDS: CETIRIZINE 10 MG TABLET PO SCH (08:40)
[2017-02-11] MEDS: busPIRone 5 MG TABLET PO SCH ×2 (08:40→19:56)
[2017-02-11] MEDS: OXYBUTYNIN CHLORIDE 5 MG TAB.XL.24H PO SCH (08:40)
[2017-02-11] MEDS: SENNOSIDES 1 TABLET PO SCH (19:56)
[2017-02-12] MEDS: traMADol 50 MG TABLET PO PRN ×2 (01:28→07:31)
[2017-02-12] MEDS: 0.9 % SODIUM CHLORIDE 1,000 ML IV SCH (03:07)
--- NOTE | 2017-02-12 07:19 | Discharge Summary ---
Providers - Providers Patient information: Note initiated : 02/12/17 at 7:16 am Service Date, if different from initiated Date: [] Patient: Meagan Butts 81 y/o F admitted on 02/09/17 for Lt Total Knee Arthroplasty. Chief Complaint: Pt sleeping during rounds this morning, did not awake her. No new concerns per nursing. Discharge date: 02/12/17 Hospitalization Hospital course: Pt was admitted on 02/09/17 for a L total knee arthroplasty s/p an intraarticular medial femoral condyle fracture. Pt underwent the procedure on the day of amission and was then transfered to the floor for IV pain meds, IV abx and PT. She was discharged on post-op day three to SNF. Discharge diagnosis: L knee osteoarthrosis and medial femoral condlye fracture. Exam - Exam Clean and dry: Yes Weight bearing status: as tolerated Ortho Discharge - TKA - Patient Instructions Diet: Regular Diet Activity: activity as tolerated Total Knee Protocol: For Total Knee: Start ROM NELSON with stationary bike or rocking chair. Work on gaining full extension of knee. Posterior dislocation precautions provided. Hip abductor strengthening and gait training instructions provided. Apply Cryocuff as instructed. Dressing Care: May shower in 2 days Patient Education: Total Knee Replacement (DC) Additional Instructions: Discharge Instructions: Do the exercises at home that physical therapy gave you. Take your prescription, photo ID, insurance cards, and current medication list with you to your first physical therapy appointment. Take your prescription to product picker any medication or equipment (such as walker, crutches, toilet riser or C.P.M.) Wear comfortable clothing for your physical therapy. Weight bearing as tolerated. You have the Aquacel Ag dressing, leave in place for 7 days then remove. If dressing becomes soiled (turns black), remove and use gauze 4x4 dressing and silvasorb ointment and change daily. Keep incision clean and dry. You may start showering on post op day #2. To avoid constipation while taking any narcotic pain medication, take an over the counter stool softener/laxative. Use your Cryocuff or ice packs as directed, on for 20 minutes at a time throughout the day. This and elevation will help with pain and swelling. Call your physician for fevers above 100.5 or pain not controlled by medication. Your prescriptions are with your discharge information. Some medications were electronically transmitted to your pharmacy of choice. - Follow Up Plan Follow Up Appointments: Uriel Green PA-C [Physician Teletypesetter] - 02/25/17 11:20 am Disposition: Home, Self-Care Prognosis: Good Rehab Potential: Good Overall status at discharge: patient is progressing back to baseline Pending Studies Resuscitation Status Full Code Diet Regular Diet Start TueFebruary 09 Dinner Aspirin (Ecotrin) 325 mg PO BID [facility] Last Admin: 02/11/17 19:56 Dose: 325 mg Admin: 02/11/17 08:40 Dose: 325 mg Admin: 02/10/17 20:34 Dose: 325 mg Admin: 02/10/17 08:28 Dose: 325 mg Admin: 02/09/17 20:54 Dose: 325 mg Buspirone HCl (Buspar) 5 mg PO BID [facility] Last Admin: 02/11/17 19:56 Dose: 5 mg Admin: 02/11/17 08:40 Dose: 5 mg Admin: 02/10/17 20:34 Dose: 5 mg Admin: 02/10/17 08:28 Dose: 5 mg Admin: 02/09/17 20:54 Dose: 5 mg Cetirizine HCl (Zyrtec) 10 mg PO DAILY [facility] Last Admin: 02/11/17 08:40 Dose: 10 mg Admin: 02/10/17 08:29 Dose: 10 mg Clonazepam (Klonopin) 0.25 mg PO BID [facility] Last Admin: 02/11/17 19:57 Dose: 0.25 mg Admin: 02/11/17 08:39 Dose: 0.25 mg Admin: 02/10/17 20:34 Dose: 0.25 mg Admin: 02/10/17 08:29 Dose: 0.25 mg Admin: 02/09/17 20:53 Dose: 0.25 mg Docusate Sodium (Colace) 100 mg PO BID [facility] Last Admin: 02/11/17 19:56 Dose: 100 mg Admin: 02/11/17 08:39 Dose: 100 mg Admin: 02/10/17 20:34 Dose: 100 mg Admin: 02/10/17 08:29 Dose: 100 mg Admin: 02/09/17 20:54 Dose: 100 mg Sodium Chloride (Sodium Chloride 0.9%) 1,000 mls @ 100 mls/hr IV .Q10H [facility] Last Admin: 02/12/17 03:07 Dose: Admin: 02/11/17 17:40 Dose: 100 mls/hr Infusion: 02/11/17 17:33 Dose: 100 mls/hr Admin: 02/11/17 16:46 Dose: Not Given Admin: 02/11/17 07:33 Dose: 100 mls/hr Admin: 02/11/17 06:32 Dose: Admin: 02/11/17 00:40 Dose: Not Given Infusion: 02/11/17 00:14 Dose: 100 mls/hr Admin: 02/10/17 14:14 Dose: 100 mls/hr Infusion: 02/10/17 14:14 Dose: 100 mls/hr Admin: 02/10/17 10:18 Dose: 100 mls/hr Infusion: 02/10/17 10:18 Dose: 100 mls/hr Admin: 02/10/17 02:14 Dose: 100 mls/hr Infusion: 02/10/17 02:14 Dose: 100 mls/hr Admin: 02/09/17 16:20 Dose: 100 mls/hr Metoprolol Tartrate (Lopressor) 25 mg PO BID [facility] Last Admin: 02/11/17 19:58 Dose: 25 mg Admin: 02/11/17 08:40 Dose: 25 mg Admin: 02/10/17 20:34 Dose: 25 mg Admin: 02/10/17 08:29 Dose: 25 mg Admin: 02/09/17 20:53 Dose: 25 mg Morphine Sulfate (Morphine) 0 mg IV Q1HP PRN PRN Reason: Pain Last Admin: 02/09/17 17:45 Dose: 0.5 mg Ondansetron HCl (Zofran) 4 mg IV Q4HP PRN PRN Reason: Nausea And Vomiting Last Admin: 02/09/17 16:23 Dose: 4 mg Oxybutynin Chloride (Ditropan Xl) 5 mg PO DAILY [facility] Last Admin: 02/11/17 08:40 Dose: 5 mg Admin: 02/10/17 08:29 Dose: 5 mg Oxycodone/Acetaminophen (Percocet 5-325 Mg) 0 tab PO Q4HP PRN PRN Reason: Pain Last Admin: 02/10/17 00:27 Dose: 1 tab Admin: 02/09/17 22:43 Dose: 1 tab [facility]oprazole [facility]ix) [facility] Last Admin: 02/11/17 07:11 Dose: 40 mg Admin: 02/10/17 07:14 Dose: 40 mg Paroxetine HCl (Paxil) 20 mg PO DAILY [facility] Last Admin: 02/11/17 08:40 Dose: 20 mg Admin: 02/10/17 08:28 Dose: 20 mg Melatonin 5 Mg (Tablet) 1 dose PO [facility] Last Admin: 02/11/17 19:58 Dose: Admin: 02/10/17 21:27 Dose: Admin: 02/09/17 20:57 Dose: Potassium Chlor[facility] ([facility]dur) [facility] Last Admin: 02/11/17 07:11 Dose: 10 meq Admin: 02/10/17 08:28 Dose: 10 meq Senna (Senokot) 2 tab PO [facility] Last Admin: 02/11/17 19:56 Dose: 2 tab Admin: 02/10/17 20:34 Dose: 2 tab Admin: 02/09/17 20:53 Dose: 2 tab Sodium Chloride (Saline Flush) 10 ml IV Q8 [facility] Last Admin: 02/11/17 21:51 Dose: Not Given Admin: 02/11/17 15:16 Dose: Not Given Admin: 02/11/17 06:14 Dose: 10 ml Admin: 02/10/17 22:17 Dose: Not Given Admin: 02/10/17 13:09 Dose: Not Given Admin: 02/10/17 05:05 Dose: Not Given Admin: 02/09/17 20:57 Dose: Not Given Tramadol HCl (Ultram) 50 mg PO Q6HP PRN PRN Reason: Pain Last Admin: 02/12/17 01:28 Dose: 50 mg Admin: 02/11/17 19:57 Dose: 50 mg Admin: 02/11/17 05:11 Dose: 50 mg Admin: 02/10/17 23:13 Dose: 50 mg Admin: 02/10/17 17:29 Dose: 50 mg Shift Summary 02/12/17 04:11 Shift Summary by Oksana Perla Pt awake most the night, confused and hallucinating/talking to self and yelling at people in the room. Has been incontinent of urine. Is 2 person assist with CGA and FWW to pivot to chair for meals. IV to right wrist SL. On 3L O2 via NC. Sats went down to 73% when she had it off. Pt able to wear AV boots for very short amount of time. Using cryocuff on left knee. Knee is edematous and hot to touch. Tramadol given Q6 for pain. Pt Son will be here at 0930 to transfer pt to [facility]. Initialized on 02/12/17 04:11 - END OF NOTE
--- NOTE | 2017-02-12 07:29 | Discharge Summary ---
Ortho Discharge - TKA - Patient Instructions Diet: Regular Diet Activity: activity as tolerated Total Knee Protocol: For Total Knee: Start ROM NELSON with stationary bike or rocking chair. Work on gaining full extension of knee. Posterior dislocation precautions provided. Hip abductor strengthening and gait training instructions provided. Apply Cryocuff as instructed. Dressing Care: May shower in 2 days Patient Education: Total Knee Replacement (DC) Additional Instructions: Discharge Instructions: Do the exercises at home that physical therapy gave you. Take your prescription, photo ID, insurance cards, and current medication list with you to your first physical therapy appointment. Take your prescription to fruit picker machine operator any medication or equipment (such as walker, crutches, toilet riser or C.P.M.) Wear comfortable clothing for your physical therapy. Weight bearing as tolerated. You have the Aquacel Ag dressing, leave in place for 7 days then remove. If dressing becomes soiled (turns black), remove and use gauze 4x4 dressing and silvasorb ointment and change daily. Keep incision clean and dry. You may start showering on post op day #2. To avoid constipation while taking any narcotic pain medication, take an over the counter stool softener/laxative. Use your Cryocuff or ice packs as directed, on for 20 minutes at a time throughout the day. This and elevation will help with pain and swelling. Call your physician for fevers above 100.5 or pain not controlled by medication. Your prescriptions are with your discharge information. Some medications were electronically transmitted to your pharmacy of choice. - Follow Up Plan Follow Up Appointments: Uriel Green PA-C [Physician Transfer Man] - 02/25/17 11:20 am Disposition: Xfer SNF Prognosis: Good Rehab Potential: Fair Overall status at discharge: patient is progressing back to baseline - Orders For Discharge Additional Discharge Orders: Physical Therapy at Discharge - TKA Location: Determined By Patient Walker Location: Determined By Patient
[2017-02-12] MEDS: PANTOPRAZOLE 40 MG TABLET PO SCH (07:33)
[2017-02-12] MEDS: DOCUSATE SODIUM 100 MG CAPSULE PO SCH (08:17)
[2017-02-12] MEDS: POTASSIUM CHLORIDE 10 MEQ TABLET PO SCH (08:18)
[2017-02-12] MEDS: clonazePAM 0.5 MG TABLET PO SCH (08:18)
[2017-02-12] MEDS: METOPROLOL TARTRATE 25 MG TABLET PO SCH (08:18)
[2017-02-12] MEDS: busPIRone 5 MG TABLET PO SCH (08:18)
[2017-02-12] MEDS: ASPIRIN 325 MG ENTERIC COATED TABLET PO SCH (08:18)
[2017-02-12] MEDS: PARoxetine 20 MG TABLET PO SCH (08:18)
[2017-02-12] MEDS: CETIRIZINE 10 MG TABLET PO SCH (08:18)
[2017-02-12] MEDS: OXYBUTYNIN CHLORIDE 5 MG TAB.XL.24H PO SCH (08:20)
== END 2017-02-12 09:45 | DRG 470 ==
LOC: MEDSUR 08:33
PROVIDERS: ADMIT Orthopaedic Surgery; ATTEND Orthopaedic Surgery